=== PATIENT | male | born 1950 | race Caucasian/White ===

== ENCOUNTER 2022-04-28 10:43 | Emergency (ER) | payer MEDICARE, MEDICAID ==
[2022-04-28] VITALS (24 sets, daily range): BP systolic 137–211; BP diastolic 77–132
[~2022-04-28] VITALS: Ht 177.8 cm; Wt 84.5 kg
[~2022-04-28 10:43] MED LIST: ADLT ASA LOW81 MG PO; ALTOPREV20 MG PO; BP MED; LIPITOR20 MG PO; LOPRESSOR25 MG PO; METFORMIN500 MG PO; NOVOLIN 70/30 SC; PREDNISONE10 MG PO; ULTRAM50 MG OR; ZESTRIL/PRIN5 MG/TA1 PO; ZITHROMAX250 MG PO
[2022-04-28] MEDS ORDERED: BACTRIM DS1 TAB PO (14:14)
== END 2022-04-28 15:36 | disposition home or self-care (01) ==
LOC: ED 10:43
PROC: 0HQMXZZ Repair Right Foot Skin, External Approach (ICD-10-PCS; principal; 2022-04-28)
DX: S92.421B Displaced fracture of distal phalanx of right great toe, initial encounter for open fracture (principal); E11.40 Type 2 diabetes mellitus with diabetic neuropathy, unspecified; I10 Essential (primary) hypertension; F17.220 Nicotine dependence, chewing tobacco, uncomplicated; W22.09XA Striking against other stationary object, initial encounter; Y92.009 Unspecified place in unspecified non-institutional (private) residence as the place of occurrence of the external cause

== ENCOUNTER 2022-05-13 13:35 | Inpatient (IN) | payer MEDICARE, MEDICAID ==
[~2022-05-13] VITALS: Ht 177.8 cm; Wt 89.0 kg
[2022-05-13] VITALS (14 sets, daily range): BP systolic 62–142; BP diastolic 38–121
[~2022-05-13 13:35] MED LIST changes: +BACTRIM DS1 TAB PO
--- NOTE | 2022-05-13 13:35 | NUR ---
PT TO ROOM VIA EMS
--- NOTE | 2022-05-13 14:00 | NUR ---
GRANDDAUGHTER GIVEN FAX NUMBER AND ASKED TO CALL PCP FOR MED REC
[2022-05-13 14:13] LABS: HEMOGLOBIN 12.4 g/dl (14.0-18.0); IMMATURE GRANULOCYTES 0.4 % (0.0-5.0); MEAN CELL VOLUME 85.1 fL CALC (80.0-100.0); MEAN CORPUSCULAR HGB 29.3 pG CALC (26.0-32.0); MEAN CORPUSCULAR HGB CONC 34.4 g/dL CAL (32.0-36.0); NEUT# 5.24 thou/uL (1.82-7.42); RED BLOOD COUNT 4.23 mill/uL (4.70-6.10); RED CELL DISTRI WIDTH 13.1 % (11.5-15.5)
[2022-05-13 14:18] LABS: ALBUMIN 3.8 g/dL (3.2-5.0); ALKALINE PHOSPHATASE 74 u/l (38-126); BILIRUBIN, TOTAL 0.5 mg/dL (0.0-1.4); BUN 43 mg/dL (8-23); BUN/CREATININE RATIO 20 (12-20 (CALC)); CHLORIDE 96 mmol/l (95-108); CREATININE 2.1 mg/dL (0.7-1.3); GFR FOR AFR.AMER. 38 ML/MIN (>=60 (CALC)); GFR OTHER RACES 31 ML/MIN (>=60 (CALC)); SODIUM 125 mmol/l (137-146); TOTAL PROTEIN 7.6 g/dL (6.3-8.2)
[2022-05-13 14:19] LABS: ANION GAP 19 (6-22 (CALC)); CARBON DIOXIDE 16 mmol/l (22-30); POTASSIUM 5.7 mmol/l (3.5-5.1); SGOT/AST 32 u/l (19-48)
--- NOTE | 2022-05-13 14:25 | NUR ---
PATIENT NOTED TO HAVE MILD REDNESS AND SWELLING TO RIGHT GREAT TOE. REPORTS HAVING LACERATION REPAIR A FEW WEEKS PRIOR. PATIENT DENIES ANY PAIN AT THIS TIME.
--- NOTE | 2022-05-13 15:15 | NUR ---
PATIENT RESTING ON STRETCHER, DENIES ANY COMPLAINTS. WATCHING TV AT THIS TIME
--- NOTE | 2022-05-13 16:40 | NUR ---
PATIENT ASSISTED WITH URINAL 700 ML OF EMBER COLORED URINE OUT
[2022-05-13 17:22] LABS: URINE BILIRUBIN - DIPSTICK NEGATIVE (NEGATIVE); URINE BLOOD DIPSTICK NEGATIVE (NEGATIVE); URINE COLOR YELLOW; URINE GLUCOSE - DIPSTICK NEGATIVE (NEGATIVE); URINE KETONE NEGATIVE (NEGATIVE); URINE LEUK ESTERASE NEGATIVE (NEGATIVE); URINE PROTEIN - DIPSTICK NEGATIVE (NEG-TRACE); URINE SPECIFIC GRAVITY >=1.030; URINE UROBILINOGEN - DIPSTICK 0.2 E.U./dL (0.2)
[2022-05-13 17:27] LABS: URINE NITRITE - DIPSTICK NEGATIVE (Negative)
--- NOTE | 2022-05-13 17:40 | NUR ---
ASSISTED WITH URINAL
--- NOTE | 2022-05-13 17:44 | NUR ---
PATIENT UNABLE TO PROVIDE NAME OF HOME MEDS. PATIENT IS POOR HISTORIAN. NO MED LIST RECEIVED FROM PCP OFFICE.
--- NOTE | 2022-05-13 18:15 | NUR ---
WAITING ON ROOM ASSIGNMENT TO TRANSPORT TO MED SURG
--- NOTE | 2022-05-13 18:55 | NUR ---
REPORT GIVEN TO SHARIF NEGRON. CARE RELINQUISHED.
[2022-05-13 19:03] LABS: CREATININE 1.8 mg/dL (0.7-1.3); POTASSIUM 5.1 mmol/l (3.5-5.1)
--- NOTE | 2022-05-13 20:00 | NUR ---
Reassessment of patient completed. No distress noted. RESTING WITH EYES CLOSED.
--- NOTE | 2022-05-13 21:00 | NUR ---
Reassessment of patient completed. No distress noted. PT RESTING AWAITING TRANSFER TO FLOOR
--- NOTE | 2022-05-13 23:00 | NUR ---
Reassessment of patient completed. No distress noted.
--- NOTE | 2022-05-13 23:30 | NUR ---
PT TRANSFERRED TO MED SURG.
[2022-05-14] VITALS (8 sets, daily range): BP systolic 102–162; BP diastolic 49–89
[2022-05-14 05:09] LABS: HEMATOCRIT 34.6 % (39.0-50.0); IMMATURE GRANULOCYTES 0.2 % (0.0-5.0); MEAN CELL VOLUME 84.6 fL CALC (80.0-100.0); MEAN CORPUSCULAR HGB 29.3 pG CALC (26.0-32.0); MEAN CORPUSCULAR HGB CONC 34.7 g/dL CAL (32.0-36.0); NEUT# 3.41 thou/uL (1.82-7.42); RED BLOOD COUNT 4.09 mill/uL (4.70-6.10); RED CELL DISTRI WIDTH 13.2 % (11.5-15.5)
[2022-05-14 05:44] LABS: ALBUMIN 3.4 g/dL (3.2-5.0); BILIRUBIN, TOTAL 0.3 mg/dL (0.0-1.4); CREATININE 1.7 mg/dL (0.7-1.3); MAGNESIUM 2.2 mg/dL (1.6-2.3); POTASSIUM 4.9 mmol/l (3.5-5.1)
--- NOTE | 2022-05-14 07:00 | NUR ---
RECEIVE REPORT SHI OLGUIN.
--- NOTE | 2022-05-14 08:00 | NUR ---
PATIENT ALERT AND ORIENTED X2. STABLE AT THIS TIME. ASSESSMENT HEAD-TO TOE IS COMPLETE. PATIENT IS EDUCATED ABOUD MEDICATIONS AND NURSING PLAN FOR TODAY. SAFETY AND FALL PRECAUTIONS IN PLACE. CALL LIGHT WITHIN IN REACH.
--- NOTE | 2022-05-14 12:00 | NUR ---
PATIENT RESTING PLEASANT IN THE BED. STABLE AT THIS TIME.
[2022-05-14] MEDS ORDERED: DICLOFEN POT50 MG PO (12:38)
[2022-05-14] MEDS ORDERED: LEVEMIR FL100 UNIT/M SC ×2 (12:40→13:13)
[2022-05-14] MEDS ORDERED: HYZAAR1 TA1 PO (12:41)
[2022-05-14] MEDS ORDERED: SULFAMETHOXAZOL1 TA3 (12:44)
--- NOTE | 2022-05-14 13:47 | NUR ---
S: SARAH BARBOSA is a 71 M who presents with infection in toe. He has a history of diabetes and HTN. All medications in patient's chart were reviewed. O: VS: BP 102/49 mmHg, P 81 bpm, RR 18 bpm,T 98.2 F W 88.9kg, HT 177.8cm , Scr= 1.7 mg/dL,CrCl= 49.4 ml/min A: Blood culture is pending. P: Patient is on zosyn 3.375mg IV Q6H. Pt received Vancomycin 1.75 g IV loading dose 05/13/22@1999. Vancomycin ordered for pharmacy to dose. Start Vancomycin 1250mg IV Q24H. Vancomycin trough is drawn before the 4th dose on 05/16/22 @ 1930. Vancomycin goal trough is between 15-20 mcg/ml. Pharmacy will follow and or advise on antibiotics use as needed.
--- NOTE | 2022-05-14 16:00 | NUR ---
PATIENT RESTING STABLE AT THIS TIME. ANY PAIN OR DISCOMFORT. SAFETY AND FALL PRECAUTIONS IN PLACE. CALL LIGHT WITHIN IN REACH.
--- NOTE | 2022-05-14 19:58 | NUR ---
Patient resting in bed. No complaints at this time. nicholea light within reach.
[2022-05-15] VITALS (8 sets, daily range): BP systolic 132–179; BP diastolic 73–93
--- NOTE | 2022-05-15 02:21 | NUR ---
Patient in bed sleeping. No complaints from the patient.
--- NOTE | 2022-05-15 04:06 | NUR ---
Patient resting in bed comfortably. No complaints. No signs of distress.
[2022-05-15 05:44] LABS: HEMATOCRIT 38.2 % (39.0-50.0); HEMOGLOBIN 12.9 g/dl (14.0-18.0); MEAN CORPUSCULAR HGB 29.4 pG CALC (26.0-32.0); MEAN CORPUSCULAR HGB CONC 33.8 g/dL CAL (32.0-36.0); RED BLOOD COUNT 4.39 mill/uL (4.70-6.10); RED CELL DISTRI WIDTH 13.5 % (11.5-15.5)
[2022-05-15 06:17] LABS: BUN 23 mg/dL (8-23); BUN/CREATININE RATIO 21 (12-20 (CALC)); CARBON DIOXIDE 20 mmol/l (22-30); CHLORIDE 111 mmol/l (95-108); CREATININE 1.1 mg/dL (0.7-1.3); GFR FOR AFR.AMER. > 60 ML/MIN (>=60 (CALC)); GFR OTHER RACES > 60 ML/MIN (>=60 (CALC)); MAGNESIUM 2.2 mg/dL (1.6-2.3)
[2022-05-15 06:28] LABS: ANION GAP 13 (6-22 (CALC)); POTASSIUM 5.2 mmol/l (3.5-5.1); SODIUM 139 mmol/l (137-146)
--- NOTE | 2022-05-15 07:00 | NUR ---
RECEIVE REPORT FROM BOSTON OLGUIN.
--- NOTE | 2022-05-15 09:37 | NUR ---
PATIENT ALERTA AND ORIENTED X3. RESTING IN BED STABLE AT THIS TIME. ASSESSMENT HEAD-TO-TOE COMPLETE. MORNING MEDICATIONS DONE. REPORT GIVEN TO MARILEE OLGUIN. FOR CONTINUE CARE.
--- NOTE | 2022-05-15 13:43 | NUR ---
PT RESTING IN BED WATCHING TV. NO APPARENT DISTRESS NOTED. IVF @ [facility]. PT DENIES ANY CURRENT WANTS OR NEEDS. CALL LIGHT WITHIN REACH. WILL CONTINUE TO MONITOR.
--- NOTE | 2022-05-15 16:02 | NUR ---
REPOSITIONED PT IN X2 PERSON ASSIST. COCCYX OFF LOADED WITH PILLOWS. PT TOLERATED WELL. NO APPARENT DISTRESS NOTED. CALL LIGHT WITHIN REACH. WILL CONTINUE TO MONITOR.
--- NOTE | 2022-05-15 19:46 | NUR ---
Patient lying in bed A+OX3. Patient talkative with no signs of pain and distress.
[2022-05-16] VITALS (8 sets, daily range): BP systolic 142–164; BP diastolic 75–96
--- NOTE | 2022-05-16 02:23 | NUR ---
Patient in bed sleeping comfortably. No signs of pain or distress. No complaints.
[2022-05-16 05:52] LABS: BUN 18 mg/dL (8-23); BUN/CREATININE RATIO 21 (12-20 (CALC)); CARBON DIOXIDE 21 mmol/l (22-30); CHLORIDE 111 mmol/l (95-108); CREATININE 0.8 mg/dL (0.7-1.3); GFR FOR AFR.AMER. > 60 ML/MIN (>=60 (CALC)); GFR OTHER RACES > 60 ML/MIN (>=60 (CALC)); SODIUM 139 mmol/l (137-146)
[2022-05-16 06:00] LABS: ANION GAP 13 (6-22 (CALC)); POTASSIUM 5.5 mmol/l (3.5-5.1)
--- NOTE | 2022-05-16 08:00 | NUR ---
PT EATING BREAKFAST, DENIES ANY COMPLAINTS, SITTING UP IN BED, PT NOT IN ANY DISTRESS, WILL CONTINUE TO MONITOR.
--- NOTE | 2022-05-16 12:00 | NUR ---
PT WATCHING TV IN BED, PT DENIES ANY COMPLAINTS, WILL CONTINUE TO MONITOR
--- NOTE | 2022-05-16 16:27 | NUR ---
PT HAS NO COMPLAINTS, PT IN NO DISTRESS, WILL CONTINUE TO MONITOR
[2022-05-17] VITALS (10 sets, daily range): BP systolic 132–166; BP diastolic 82–99
--- NOTE | 2022-05-17 01:31 | NUR ---
PT ALERT, ORIENTED, ABLE TO MAKE NEEDS KNOWN. HR-RRR, PT DENIES PAIN, CHEST PAIN, PRESSURE. TELEMETRY IN PLACE. LUNG SOUNDS CLEAR. PT DENIES SOB, DIFFICULTY BREATHING. ABD SOFT, NONTENDER, BT PRESENT. PT DENIES NAUSEA. PT VOIDING ADEQUATE AMOUNT OF URINE. PT HAS BLACKENED RIGHT GREAT TOE, DR AWARE PER DAY SHIFT. PT SLEEPING IN NO SIGN OF DISCOMFORT. WILL CONTINUE TO MONITOR.
--- NOTE | 2022-05-17 04:23 | NUR ---
Pt sleeping in no sign of discomfort, call light within reach. Will continue to monitor.
[2022-05-17 05:43] LABS: HEMATOCRIT 39.2 % (39.0-50.0); HEMOGLOBIN 13.2 g/dl (14.0-18.0); IMMATURE GRANULOCYTES 0.4 % (0.0-5.0); MEAN CELL VOLUME 87.3 fL CALC (80.0-100.0); MEAN CORPUSCULAR HGB 29.4 pG CALC (26.0-32.0); MEAN CORPUSCULAR HGB CONC 33.7 g/dL CAL (32.0-36.0); NEUT# 2.87 thou/uL (1.82-7.42); RED BLOOD COUNT 4.49 mill/uL (4.70-6.10); RED CELL DISTRI WIDTH 13.4 % (11.5-15.5)
[2022-05-17 06:08] LABS: ANION GAP 14 (6-22 (CALC)); BUN 18 mg/dL (8-23); BUN/CREATININE RATIO 22 (12-20 (CALC)); CARBON DIOXIDE 22 mmol/l (22-30); CHLORIDE 108 mmol/l (95-108); CREATININE 0.8 mg/dL (0.7-1.3); GFR FOR AFR.AMER. > 60 ML/MIN (>=60 (CALC)); GFR OTHER RACES > 60 ML/MIN (>=60 (CALC)); MAGNESIUM 1.7 mg/dL (1.6-2.3); POTASSIUM 4.9 mmol/l (3.5-5.1); SODIUM 139 mmol/l (137-146)
--- NOTE | 2022-05-17 08:02 | NUR ---
BEDSIDE REPORT GIVEN, PT SLEEPING, BREATHING EVEN AND NON-LABORED, TELE MONITOR IN PLACE, CALL JAY IN REACH AND BED LOCKED IN LOWEST POSITION.
--- NOTE | 2022-05-17 12:00 | NUR ---
SITTING UP IN RECLINER HAVING MEAL, CONDITION STABLE, CALL JAY IN REACH.
--- NOTE | 2022-05-17 16:00 | NUR ---
RESTING IN BED, STABLE CONDITION
--- NOTE | 2022-05-17 23:45 | NUR ---
PT RESTING IN BED WACTING TV, DENIES PAIN OR DISCOMFORT AT THIS TIME. NO S/S OF DISTRESS NOTED. ASSESMENT COMPLETED AT THIS TIME. PT HAS A 20G IN TO [facility]. PT HAS SUTURES TO RIGHT BIG TOE, PT CAN'T RECALL WHAT HAPPEN TO IT. CALL LIGHT IN REACH AND BED IN LOWEST POSITION.
[2022-05-18] VITALS (7 sets, daily range): BP systolic 149–174; BP diastolic 82–105
--- NOTE | 2022-05-18 00:40 | NUR ---
PT IN BED RESTING WITH EYES CLOSED BREATHING EVEN AND [id number]. NO S/S OF DISTRESS NOTED. CALL LIGHT IN REACH AND BED IN LOWEST POSITION.
[2022-05-18 05:13] LABS: HEMATOCRIT 37.8 % (39.0-50.0); IMMATURE GRANULOCYTES 0.3 % (0.0-5.0); MEAN CELL VOLUME 86.9 fL CALC (80.0-100.0); MEAN CORPUSCULAR HGB 29.9 pG CALC (26.0-32.0); MEAN CORPUSCULAR HGB CONC 34.4 g/dL CAL (32.0-36.0); NEUT# 3.74 thou/uL (1.82-7.42); RED BLOOD COUNT 4.35 mill/uL (4.70-6.10); RED CELL DISTRI WIDTH 13.2 % (11.5-15.5)
[2022-05-18 05:37] LABS: ANION GAP 14 (6-22 (CALC)); BUN 19 mg/dL (8-23); BUN/CREATININE RATIO 27 (12-20 (CALC)); CARBON DIOXIDE 22 mmol/l (22-30); CHLORIDE 108 mmol/l (95-108); CREATININE 0.7 mg/dL (0.7-1.3); GFR FOR AFR.AMER. > 60 ML/MIN (>=60 (CALC)); GFR OTHER RACES > 60 ML/MIN (>=60 (CALC)); MAGNESIUM 1.6 mg/dL (1.6-2.3); POTASSIUM 4.5 mmol/l (3.5-5.1); SODIUM 140 mmol/l (137-146)
--- NOTE | 2022-05-18 07:25 | NUR ---
RESTING IN BED. CHEST RISING AND FALLING NO S/S OF DISTRESS NOTED.
--- NOTE | 2022-05-18 12:20 | NUR ---
RECEIVE REPORT FROM KINZA OLGUIN. PATIENT STABLE RESTING IN BED. CONTINUE PLAN OF CARE.
[2022-05-18] MEDS ORDERED: DOXYCYCLINE100 MG PO (15:36)
[2022-05-18] MEDS ORDERED: LEVEMIR100 UNIT SC (15:36)
[2022-05-18] MEDS ORDERED: NORVASC2.5 M1 PO (15:39)
[2022-05-18] MEDS ORDERED: PROTONIX40 MG PO (15:39)
--- NOTE | 2022-05-18 16:18 | NUR ---
PATIENT IS RESTING IN BED. STABLE AT THIS TIME. SAFETY AND FALL PRECAUTIONS IN PLACE. CALL LIGHT WITHIN IN REACH. HOURLY ROUNDS CONTINUE.
== END 2022-05-18 19:00 | DRG 683 ==
LOC: ED 13:35 → ED-I 17:34 → ED 17:47 → MS2 17:48
PROVIDERS: Emergency Medicine; Internal Medicine; ADMIT Internal Medicine; ATTEND Internal Medicine
DX: N17.9 Acute kidney failure, unspecified (principal); E87.1 Hypo-osmolality and hyponatremia; E87.5 Hyperkalemia; E86.0 Dehydration; T50.2X5A Adverse effect of carbonic-anhydrase inhibitors, benzothiadiazides and other diuretics, initial encounter; M62.81 Muscle weakness (generalized); R26.81 Unsteadiness on feet; I10 Essential (primary) hypertension; L03.031 Cellulitis of right toe; E11.9 Type 2 diabetes mellitus without complications; F17.200 Nicotine dependence, unspecified, uncomplicated; S92.421D Displaced fracture of distal phalanx of right great toe, subsequent encounter for fracture with routine healing; X58.XXXD Exposure to other specified factors, subsequent encounter; Z60.2 Problems related to living alone
CPT/HCPCS: J3370

== ENCOUNTER 2022-12-30 14:12 | Inpatient (IN) | payer MEDICARE, MEDICAID ==
[~2022-12-30] VITALS: Ht 177.8 cm; Wt 90.2 kg
[~2022-12-30 14:12] MED LIST changes: +DICLOFEN POT50 MG PO; +DOXYCYCLINE100 MG PO; +HYZAAR1 TA1 PO; +LEVEMIR FL100 UNIT/M SC; +LEVEMIR100 UNIT SC; +NORVASC2.5 M1 PO; +PROTONIX40 MG PO; +SULFAMETHOXAZOL1 TA3
[2022-12-30 14:25] VITALS: BP 114/69
[2022-12-30 14:59] LABS: BASO% 0.4 % (0-3); EOS% 7.1 % (0-8); HEMATOCRIT 40.7 % (39.0-50.0); HEMOGLOBIN 12.9 g/dl (14.0-18.0); IMMATURE GRANULOCYTES 0.1 % (0.0-5.0); LYMPH% 22.5 % (15-41); MEAN CELL VOLUME 86.6 fL CALC (80.0-100.0); MEAN CORPUSCULAR HGB 27.4 pG CALC (26.0-32.0); MEAN CORPUSCULAR HGB CONC 31.7 g/dL CAL (32.0-36.0); MONO% 6.8 % (2-13); NEUT# 4.47 thou/uL (1.82-7.42); NEUT% 63.1 % (42-76); RED BLOOD COUNT 4.7 mill/uL (4.70-6.10); RED CELL DISTRI WIDTH 14.1 % (11.5-15.5)
[2022-12-30 15:15] LABS: ANION GAP 15 (6-22 (CALC)); BUN 25 mg/dL (8-23); BUN/CREATININE RATIO 27 (12-20 (CALC)); CARBON DIOXIDE 23 mmol/l (22-30); CHLORIDE 105 mmol/l (95-108); CREATININE 0.9 mg/dL (0.7-1.3); GFR FOR AFR.AMER. > 60 ML/MIN (>=60 (CALC)); GFR OTHER RACES > 60 ML/MIN (>=60 (CALC)); POTASSIUM 4.5 mmol/l (3.5-5.1); SODIUM 138 mmol/l (137-146)
[2022-12-30] MEDS ORDERED: SERTRALINE50 MG PO (15:37)
[2022-12-30] MEDS ORDERED: HYDROCHLOROT12.5 M1 PO (15:37)
[2022-12-30] MEDS ORDERED: LOSARTAN POTASS50 MG PO (15:38)
[2022-12-30] MEDS ORDERED: METFORMIN HYDR500 MG PO (15:39)
[2022-12-30] MEDS ORDERED: OZEMPIC2 MG SC (15:42)
[2022-12-30] MEDS ORDERED: INSULIN DEGL SC (15:47)
[2022-12-30] MEDS ORDERED: PEPCID AC10 MG PO (15:56)
[2022-12-30] MEDS ORDERED: MIRALAX17 GM (15:57)
[2022-12-30] MEDS ORDERED: DAILY PROBIOTI250 MG (15:58)
[2022-12-30 19:11] VITALS: BP 119/70
[2022-12-30 22:32] LABS: URINE BILIRUBIN - DIPSTICK NEGATIVE (NEGATIVE); URINE BLOOD DIPSTICK NEGATIVE (NEGATIVE); URINE COLOR YELLOW; URINE GLUCOSE - DIPSTICK NEGATIVE (NEGATIVE); URINE KETONE TRACE mg/dL (NEGATIVE); URINE LEUK ESTERASE NEGATIVE (NEGATIVE); URINE PROTEIN - DIPSTICK NEGATIVE (NEG-TRACE); URINE SPECIFIC GRAVITY 1.015; URINE UROBILINOGEN - DIPSTICK 0.2 E.U./dL (0.2)
[2022-12-30 22:39] LABS: URINE NITRITE - DIPSTICK NEGATIVE (Negative)
[2022-12-31] VITALS (14 sets, daily range): BP systolic 100–166; BP diastolic 61–90
[2022-12-31 04:52] LABS: ALBUMIN 3.3 g/dL (3.2-5.0); ALKALINE PHOSPHATASE 86 u/l (38-126); ANION GAP 14 (6-22 (CALC)); BUN 23 mg/dL (8-23); BUN/CREATININE RATIO 30 (12-20 (CALC)); CARBON DIOXIDE 24 mmol/l (22-30); CHLORIDE 106 mmol/l (95-108); CREATININE 0.8 mg/dL (0.7-1.3); GFR FOR AFR.AMER. > 60 ML/MIN (>=60 (CALC)); GFR OTHER RACES > 60 ML/MIN (>=60 (CALC)); POTASSIUM 4.4 mmol/l (3.5-5.1); SGOT/AST 20 u/l (19-48); SODIUM 140 mmol/l (137-146); TOTAL PROTEIN 7.2 g/dL (6.3-8.2)
[2022-12-31 05:02] LABS: BILIRUBIN, TOTAL 0.1 mg/dL (0.2-1.3)
[2022-12-31 05:56] LABS: BASO% 0.3 % (0-3); HEMATOCRIT 37.2 % (39.0-50.0); HEMOGLOBIN 12.2 g/dl (14.0-18.0); IMMATURE GRANULOCYTES 0.1 % (0.0-5.0); LYMPH% 22.7 % (15-41); MEAN CELL VOLUME 85.3 fL CALC (80.0-100.0); MEAN CORPUSCULAR HGB CONC 32.8 g/dL CAL (32.0-36.0); MONO% 7.6 % (2-13); NEUT# 4.98 thou/uL (1.82-7.42); NEUT% 63.3 % (42-76); RED BLOOD COUNT 4.36 mill/uL (4.70-6.10); RED CELL DISTRI WIDTH 14.1 % (11.5-15.5)
[2023-01-01] VITALS (9 sets, daily range): BP systolic 130–151; BP diastolic 75–81
[2023-01-01 04:43] LABS: BASO% 0.2 % (0-3); EOS% 4.7 % (0-8); HEMATOCRIT 36.8 % (39.0-50.0); HEMOGLOBIN 12.1 g/dl (14.0-18.0); IMMATURE GRANULOCYTES 0.1 % (0.0-5.0); LYMPH% 17.9 % (15-41); MEAN CELL VOLUME 85.4 fL CALC (80.0-100.0); MEAN CORPUSCULAR HGB 28.1 pG CALC (26.0-32.0); MEAN CORPUSCULAR HGB CONC 32.9 g/dL CAL (32.0-36.0); MONO% 9.6 % (2-13); NEUT# 5.68 thou/uL (1.82-7.42); NEUT% 67.5 % (42-76); RED BLOOD COUNT 4.31 mill/uL (4.70-6.10); RED CELL DISTRI WIDTH 14.2 % (11.5-15.5)
[2023-01-01 04:58] LABS: ALBUMIN 3.3 g/dL (3.2-5.0); ALKALINE PHOSPHATASE 76 u/l (38-126); ANION GAP 13 (6-22 (CALC)); BUN 13 mg/dL (8-23); BUN/CREATININE RATIO 19 (12-20 (CALC)); CARBON DIOXIDE 23 mmol/l (22-30); CHLORIDE 107 mmol/l (95-108); CREATININE 0.7 mg/dL (0.7-1.3); GFR FOR AFR.AMER. > 60 ML/MIN (>=60 (CALC)); GFR OTHER RACES > 60 ML/MIN (>=60 (CALC)); POTASSIUM 4.3 mmol/l (3.5-5.1); SGOT/AST 20 u/l (19-48); SODIUM 139 mmol/l (137-146); TOTAL PROTEIN 7.4 g/dL (6.3-8.2)
[2023-01-01 05:00] LABS: BILIRUBIN, TOTAL 0.3 mg/dL (0.2-1.3)
[2023-01-02] VITALS (10 sets, daily range): BP systolic 118–134; BP diastolic 65–74
[2023-01-02 05:02] LABS: BASO% 0.3 % (0-3); HEMATOCRIT 37.7 % (39.0-50.0); HEMOGLOBIN 12.4 g/dl (14.0-18.0); IMMATURE GRANULOCYTES 0.4 % (0.0-5.0); LYMPH% 19.8 % (15-41); MEAN CELL VOLUME 84.2 fL CALC (80.0-100.0); MEAN CORPUSCULAR HGB 27.7 pG CALC (26.0-32.0); MEAN CORPUSCULAR HGB CONC 32.9 g/dL CAL (32.0-36.0); MONO% 10.4 % (2-13); NEUT# 4.98 thou/uL (1.82-7.42); NEUT% 62.1 % (42-76); RED BLOOD COUNT 4.48 mill/uL (4.70-6.10); RED CELL DISTRI WIDTH 14.1 % (11.5-15.5)
[2023-01-02 06:40] LABS: ALBUMIN 3.5 g/dL (3.2-5.0); ALKALINE PHOSPHATASE 81 u/l (38-126); ANION GAP 13 (6-22 (CALC)); BILIRUBIN, TOTAL 0.3 mg/dL (0.2-1.3); BUN 11 mg/dL (8-23); BUN/CREATININE RATIO 19 (12-20 (CALC)); CARBON DIOXIDE 25 mmol/l (22-30); CHLORIDE 104 mmol/l (95-108); CREATININE 0.6 mg/dL (0.7-1.3); GFR FOR AFR.AMER. > 60 ML/MIN (>=60 (CALC)); GFR OTHER RACES > 60 ML/MIN (>=60 (CALC)); SGOT/AST 19 u/l (19-48); SODIUM 137 mmol/l (137-146); TOTAL PROTEIN 7.8 g/dL (6.3-8.2)
[2023-01-03] VITALS (7 sets, daily range): BP systolic 111–143; BP diastolic 68–82
[2023-01-03 05:10] LABS: BASO% 0.3 % (0-3); EOS% 8.9 % (0-8); HEMATOCRIT 36.3 % (39.0-50.0); HEMOGLOBIN 11.8 g/dl (14.0-18.0); IMMATURE GRANULOCYTES 0.1 % (0.0-5.0); LYMPH% 17.1 % (15-41); MEAN CELL VOLUME 85.2 fL CALC (80.0-100.0); MEAN CORPUSCULAR HGB 27.7 pG CALC (26.0-32.0); MEAN CORPUSCULAR HGB CONC 32.5 g/dL CAL (32.0-36.0); MONO% 8.3 % (2-13); NEUT# 4.98 thou/uL (1.82-7.42); NEUT% 65.3 % (42-76); RED BLOOD COUNT 4.26 mill/uL (4.70-6.10); RED CELL DISTRI WIDTH 14.2 % (11.5-15.5)
[2023-01-03 05:24] LABS: ANION GAP 12 (6-22 (CALC)); BUN 15 mg/dL (8-23); BUN/CREATININE RATIO 22 (12-20 (CALC)); CARBON DIOXIDE 27 mmol/l (22-30); CHLORIDE 104 mmol/l (95-108); CREATININE 0.7 mg/dL (0.7-1.3); GFR FOR AFR.AMER. > 60 ML/MIN (>=60 (CALC)); GFR OTHER RACES > 60 ML/MIN (>=60 (CALC)); MAGNESIUM 1.8 mg/dL (1.6-2.3); POTASSIUM 3.9 mmol/l (3.5-5.1); SODIUM 140 mmol/l (137-146)
[2023-01-04] VITALS (8 sets, daily range): BP systolic 123–159; BP diastolic 60–83
[2023-01-04 05:17] LABS: BASO% 0.4 % (0-3); EOS% 13.5 % (0-8); HEMATOCRIT 36.5 % (39.0-50.0); HEMOGLOBIN 11.8 g/dl (14.0-18.0); IMMATURE GRANULOCYTES 0.2 % (0.0-5.0); LYMPH% 23.8 % (15-41); MEAN CELL VOLUME 85.3 fL CALC (80.0-100.0); MEAN CORPUSCULAR HGB 27.6 pG CALC (26.0-32.0); MEAN CORPUSCULAR HGB CONC 32.3 g/dL CAL (32.0-36.0); MONO% 11.6 % (2-13); NEUT# 2.89 thou/uL (1.82-7.42); NEUT% 50.5 % (42-76); RED BLOOD COUNT 4.28 mill/uL (4.70-6.10); RED CELL DISTRI WIDTH 14.3 % (11.5-15.5)
[2023-01-04 05:25] LABS: ANION GAP 12 (6-22 (CALC)); BUN 14 mg/dL (8-23); BUN/CREATININE RATIO 22 (12-20 (CALC)); CARBON DIOXIDE 27 mmol/l (22-30); CHLORIDE 105 mmol/l (95-108); CREATININE 0.6 mg/dL (0.7-1.3); GFR FOR AFR.AMER. > 60 ML/MIN (>=60 (CALC)); GFR OTHER RACES > 60 ML/MIN (>=60 (CALC)); MAGNESIUM 1.7 mg/dL (1.6-2.3); POTASSIUM 4.3 mmol/l (3.5-5.1); SODIUM 139 mmol/l (137-146)
[2023-01-05 04:24] VITALS: BP 143/77
[2023-01-05 06:03] LABS: BASO% 0.3 % (0-3); EOS% 11.3 % (0-8); HEMOGLOBIN 11.7 g/dl (14.0-18.0); IMMATURE GRANULOCYTES 0.2 % (0.0-5.0); LYMPH% 27.5 % (15-41); MEAN CELL VOLUME 86.2 fL CALC (80.0-100.0); MEAN CORPUSCULAR HGB 27.3 pG CALC (26.0-32.0); MEAN CORPUSCULAR HGB CONC 31.6 g/dL CAL (32.0-36.0); MONO% 10.4 % (2-13); NEUT# 3.24 thou/uL (1.82-7.42); NEUT% 50.3 % (42-76); RED BLOOD COUNT 4.29 mill/uL (4.70-6.10); RED CELL DISTRI WIDTH 14.3 % (11.5-15.5)
[2023-01-05 06:19] LABS: ALBUMIN 3.2 g/dL (3.2-5.0); ALKALINE PHOSPHATASE 88 u/l (38-126); ANION GAP 13 (6-22 (CALC)); BUN 20 mg/dL (8-23); BUN/CREATININE RATIO 24 (12-20 (CALC)); CARBON DIOXIDE 26 mmol/l (22-30); CHLORIDE 105 mmol/l (95-108); CREATININE 0.9 mg/dL (0.7-1.3); GFR FOR AFR.AMER. > 60 ML/MIN (>=60 (CALC)); GFR OTHER RACES > 60 ML/MIN (>=60 (CALC)); POTASSIUM 4.3 mmol/l (3.5-5.1); SGOT/AST 18 u/l (19-48); SODIUM 139 mmol/l (137-146); TOTAL PROTEIN 7.2 g/dL (6.3-8.2)
[2023-01-05 06:21] LABS: BILIRUBIN, TOTAL 0.1 mg/dL (0.2-1.3)
[2023-01-05 07:00] VITALS: BP 155/86
[2023-01-05] MEDS ORDERED: VANCOMYCIN1250 MG/25 IV (09:48)
[2023-01-05] MEDS ORDERED: LEVOFLOXACIN500MG PO (09:48)
[2023-01-05 10:00] VITALS: BP 155/81
== END 2023-01-05 14:15 | DRG 617 ==
LOC: MS2 14:12
PROVIDERS: Internal Medicine; Nurse Practitioner Family; ADMIT Internal Medicine; ATTEND Internal Medicine
PROC: 0Y6P0Z0 Detachment at Right 1st Toe, Complete, Open Approach (ICD-10-PCS; principal; 2022-12-31)
PROC: 0Y6R0Z3 Detachment at Right 2nd Toe, Low, Open Approach (ICD-10-PCS; 2022-12-31)
PROC: 0QBN0ZZ Excision of Right Metatarsal, Open Approach (ICD-10-PCS; 2022-12-31)
PROC: 0HXMXZZ Transfer Right Foot Skin, External Approach (ICD-10-PCS; 2022-12-31)
PROC: 0JBQ0ZZ Excision of Right Foot Subcutaneous Tissue and Fascia, Open Approach (ICD-10-PCS; 2022-12-31)
PROC: 02HV33Z Insertion of Infusion Device into Superior Vena Cava, Percutaneous Approach (ICD-10-PCS; 2023-01-01)
PROC: B518ZZA Fluoroscopy of Superior Vena Cava, Guidance (ICD-10-PCS; 2023-01-01)
DX: E11.69 Type 2 diabetes mellitus with other specified complication (principal); L97.422 Non-pressure chronic ulcer of left heel and midfoot with fat layer exposed; M86.171 Other acute osteomyelitis, right ankle and foot; E11.621 Type 2 diabetes mellitus with foot ulcer; S91.101A Unspecified open wound of right great toe without damage to nail, initial encounter; S91.104A Unspecified open wound of right lesser toe(s) without damage to nail, initial encounter; L03.031 Cellulitis of right toe; E11.40 Type 2 diabetes mellitus with diabetic neuropathy, unspecified; I10 Essential (primary) hypertension; B95.2 Enterococcus as the cause of diseases classified elsewhere; B96.89 Other specified bacterial agents as the cause of diseases classified elsewhere; X58.XXXA Exposure to other specified factors, initial encounter; Z79.84 Long term (current) use of oral hypoglycemic drugs; Z79.4 Long term (current) use of insulin; Z79.85 Long-term (current) use of injectable non-insulin antidiabetic drugs; Z20.822 Contact with and (suspected) exposure to COVID-19
CPT/HCPCS: J0692; J1650; J2997; J3370

== ENCOUNTER 2023-03-08 08:16 | Inpatient (IN) | payer MEDICARE, OTHER ==
[~2023-03-08] VITALS: Ht 177.8 cm; Wt 98.3 kg
[2023-03-08] VITALS (132 sets, daily range): BP systolic 59–179; BP diastolic 35–149
[~2023-03-08 08:16] MED LIST changes: +DAILY PROBIOTI250 MG; +HYDROCHLOROT12.5 M1 PO; +INSULIN DEGL SC; +LEVOFLOXACIN500MG PO; +LOSARTAN POTASS50 MG PO; +METFORMIN HYDR500 MG PO; +MIRALAX17 GM; +OZEMPIC2 MG SC; +PEPCID AC10 MG PO; +SERTRALINE50 MG PO; +VANCOMYCIN1250 MG/25 IV
[2023-03-08 08:59] LABS: BASO% 0.1 % (0-3); EOS% 0.2 % (0-8); HEMATOCRIT 31.2 % (39.0-50.0); HEMOGLOBIN 10.4 g/dl (14.0-18.0); IMMATURE GRANULOCYTES 0.2 % (0.0-5.0); LYMPH% 6.5 % (15-41); MEAN CELL VOLUME 86.9 fL CALC (80.0-100.0); MEAN CORPUSCULAR HGB CONC 33.3 g/dL CAL (32.0-36.0); MONO% 7.2 % (2-13); NEUT# 14.11 thou/uL (1.82-7.42); NEUT% 85.8 % (42-76); RED BLOOD COUNT 3.59 mill/uL (4.70-6.10); RED CELL DISTRI WIDTH 15.6 % (11.5-15.5)
[2023-03-08 08:59] LABS: URINE BLOOD DIPSTICK Negative (NEGATIVE); URINE GLUCOSE - DIPSTICK Negative (NEGATIVE); URINE KETONE 15 mg/dL (NEGATIVE); URINE LEUK ESTERASE Negative (NEGATIVE); URINE NITRITE - DIPSTICK Negative (Negative); URINE PROTEIN - DIPSTICK Trace mg/dL (NEG-TRACE); URINE SPECIFIC GRAVITY 1.025
[2023-03-08 09:00] LABS: URINE COLOR Yellow
[2023-03-08 10:34] LABS: BILIRUBIN, TOTAL 0.6 mg/dL (0.2-1.3); CREATININE 2.5 mg/dL (0.7-1.3); POTASSIUM 5.6 mmol/l (3.5-5.1)
[2023-03-09] VITALS (30 sets, daily range): BP systolic 64–191; BP diastolic 43–139
[2023-03-09 06:07] LABS: ALBUMIN 2.8 g/dL (3.2-5.0); CREATININE 1.8 mg/dL (0.7-1.3); MAGNESIUM 1.5 mg/dL (1.6-2.3)
[2023-03-09 07:26] LABS: POTASSIUM 5.3 mmol/l (3.5-5.1)
[2023-03-09 09:57] LABS: BASO% 0.1 % (0-3); EOS% 0.9 % (0-8); HEMATOCRIT 31.1 % (39.0-50.0); HEMOGLOBIN 10.3 g/dl (14.0-18.0); IMMATURE GRANULOCYTES 0.2 % (0.0-5.0); LYMPH% 6.4 % (15-41); MEAN CELL VOLUME 87.1 fL CALC (80.0-100.0); MEAN CORPUSCULAR HGB 28.9 pG CALC (26.0-32.0); MEAN CORPUSCULAR HGB CONC 33.1 g/dL CAL (32.0-36.0); MONO% 6.8 % (2-13); NEUT# 11.01 thou/uL (1.82-7.42); NEUT% 85.6 % (42-76); RED BLOOD COUNT 3.57 mill/uL (4.70-6.10); RED CELL DISTRI WIDTH 15.2 % (11.5-15.5)
[2023-03-10] VITALS (24 sets, daily range): BP systolic 122–174; BP diastolic 65–141
[2023-03-10 06:25] LABS: ALBUMIN 2.3 g/dL (3.2-5.0); CREATININE 1.4 mg/dL (0.7-1.3)
[2023-03-10 06:30] LABS: POTASSIUM 4.1 mmol/l (3.5-5.1)
[2023-03-11] VITALS (23 sets, daily range): BP systolic 112–155; BP diastolic 61–99
[2023-03-11 05:30] LABS: BASO% 0.1 % (0-3); EOS% 5.8 % (0-8); HEMOGLOBIN 8.6 g/dl (14.0-18.0); IMMATURE GRANULOCYTES 0.1 % (0.0-5.0); LYMPH% 13.3 % (15-41); MEAN CELL VOLUME 89.7 fL CALC (80.0-100.0); MEAN CORPUSCULAR HGB 29.7 pG CALC (26.0-32.0); MEAN CORPUSCULAR HGB CONC 33.1 g/dL CAL (32.0-36.0); MONO% 9.2 % (2-13); NEUT# 6.39 thou/uL (1.82-7.42); NEUT% 71.5 % (42-76); RED BLOOD COUNT 2.9 mill/uL (4.70-6.10); RED CELL DISTRI WIDTH 14.8 % (11.5-15.5)
[2023-03-11 05:48] LABS: ALBUMIN 2.3 g/dL (3.2-5.0); BUN 27 mg/dL (8-23); CARBON DIOXIDE 33 mmol/l (22-30); CHLORIDE 102 mmol/l (95-108); CREATININE 1.2 mg/dL (0.7-1.3); GFR FOR AFR.AMER. > 60 ML/MIN (>=60 (CALC)); GFR OTHER RACES 59 ML/MIN (>=60 (CALC)); MAGNESIUM 1.7 mg/dL (1.6-2.3); POTASSIUM 3.7 mmol/l (3.5-5.1); SODIUM 138 mmol/l (137-146)
[2023-03-11 20:02] LABS: HEMATOCRIT 25.8 % (39.0-50.0); HEMOGLOBIN 8.3 g/dl (14.0-18.0); MEAN CELL VOLUME 90.5 fL CALC (80.0-100.0); MEAN CORPUSCULAR HGB 29.1 pG CALC (26.0-32.0); MEAN CORPUSCULAR HGB CONC 32.2 g/dL CAL (32.0-36.0); RED BLOOD COUNT 2.85 mill/uL (4.70-6.10); RED CELL DISTRI WIDTH 14.9 % (11.5-15.5)
[2023-03-12] VITALS (31 sets, daily range): BP systolic 117–150; BP diastolic 71–94
[2023-03-12 05:23] LABS: BASO% 0.3 % (0-3); EOS% 7.3 % (0-8); HEMATOCRIT 25.1 % (39.0-50.0); HEMOGLOBIN 8.1 g/dl (14.0-18.0); IMMATURE GRANULOCYTES 0.4 % (0.0-5.0); LYMPH% 10.5 % (15-41); MEAN CELL VOLUME 91.3 fL CALC (80.0-100.0); MEAN CORPUSCULAR HGB 29.5 pG CALC (26.0-32.0); MEAN CORPUSCULAR HGB CONC 32.3 g/dL CAL (32.0-36.0); MONO% 9.3 % (2-13); NEUT# 5.57 thou/uL (1.82-7.42); NEUT% 72.2 % (42-76); RED BLOOD COUNT 2.75 mill/uL (4.70-6.10)
[2023-03-12 05:38] LABS: ALBUMIN 2.3 g/dL (3.2-5.0); ALKALINE PHOSPHATASE 74 u/l (38-126); ANION GAP 7 (6-22 (CALC)); BILIRUBIN, TOTAL 0.5 mg/dL (0.2-1.3); BUN 22 mg/dL (8-23); BUN/CREATININE RATIO 18 (12-20 (CALC)); CARBON DIOXIDE 32 mmol/l (22-30); CHLORIDE 104 mmol/l (95-108); CREATININE 1.2 mg/dL (0.7-1.3); GFR FOR AFR.AMER. > 60 ML/MIN (>=60 (CALC)); GFR OTHER RACES 59 ML/MIN (>=60 (CALC)); MAGNESIUM 1.7 mg/dL (1.6-2.3); POTASSIUM 3.8 mmol/l (3.5-5.1); SGOT/AST 29 u/l (19-48); SODIUM 139 mmol/l (137-146); TOTAL PROTEIN 5.6 g/dL (6.3-8.2)
[2023-03-13] VITALS (11 sets, daily range): BP systolic 137–161; BP diastolic 82–90
[2023-03-13 05:34] LABS: BASO% 0.4 % (0-3); EOS% 10.9 % (0-8); HEMATOCRIT 28.1 % (39.0-50.0); HEMOGLOBIN 9.1 g/dl (14.0-18.0); IMMATURE GRANULOCYTES 0.7 % (0.0-5.0); MEAN CORPUSCULAR HGB 30.1 pG CALC (26.0-32.0); MEAN CORPUSCULAR HGB CONC 32.4 g/dL CAL (32.0-36.0); MONO% 9.6 % (2-13); NEUT# 4.46 thou/uL (1.82-7.42); NEUT% 63.4 % (42-76); RED BLOOD COUNT 3.02 mill/uL (4.70-6.10)
[2023-03-13 05:46] LABS: ALBUMIN 2.4 g/dL (3.2-5.0); ALKALINE PHOSPHATASE 70 u/l (38-126); ANION GAP 9 (6-22 (CALC)); BILIRUBIN, TOTAL 0.6 mg/dL (0.2-1.3); BUN 20 mg/dL (8-23); BUN/CREATININE RATIO 16 (12-20 (CALC)); CARBON DIOXIDE 30 mmol/l (22-30); CHLORIDE 105 mmol/l (95-108); CREATININE 1.3 mg/dL (0.7-1.3); GFR FOR AFR.AMER. > 60 ML/MIN (>=60 (CALC)); GFR OTHER RACES 54 ML/MIN (>=60 (CALC)); MAGNESIUM 1.8 mg/dL (1.6-2.3); POTASSIUM 3.9 mmol/l (3.5-5.1); SGOT/AST 25 u/l (19-48); SODIUM 140 mmol/l (137-146); TOTAL PROTEIN 5.9 g/dL (6.3-8.2)
[2023-03-14] VITALS (7 sets, daily range): BP systolic 155–180; BP diastolic 80–97
[2023-03-14 13:14] LABS: HEMATOCRIT 31.2 % (39.0-50.0); HEMOGLOBIN 9.8 g/dl (14.0-18.0); MEAN CELL VOLUME 92.9 fL CALC (80.0-100.0); MEAN CORPUSCULAR HGB 29.2 pG CALC (26.0-32.0); MEAN CORPUSCULAR HGB CONC 31.4 g/dL CAL (32.0-36.0); RED BLOOD COUNT 3.36 mill/uL (4.70-6.10); RED CELL DISTRI WIDTH 14.7 % (11.5-15.5)
[2023-03-14 13:21] LABS: ANION GAP 8 (6-22 (CALC)); BUN 21 mg/dL (8-23); BUN/CREATININE RATIO 18 (12-20 (CALC)); CARBON DIOXIDE 29 mmol/l (22-30); CHLORIDE 104 mmol/l (95-108); CREATININE 1.2 mg/dL (0.7-1.3); GFR FOR AFR.AMER. > 60 ML/MIN (>=60 (CALC)); GFR OTHER RACES 59 ML/MIN (>=60 (CALC)); SODIUM 137 mmol/l (137-146)
[2023-03-15] VITALS (7 sets, daily range): BP systolic 138–177; BP diastolic 63–112
[2023-03-15 06:13] LABS: HEMATOCRIT 31.4 % (39.0-50.0); MEAN CELL VOLUME 91.5 fL CALC (80.0-100.0); MEAN CORPUSCULAR HGB 29.2 pG CALC (26.0-32.0); MEAN CORPUSCULAR HGB CONC 31.8 g/dL CAL (32.0-36.0); RED BLOOD COUNT 3.43 mill/uL (4.70-6.10); RED CELL DISTRI WIDTH 14.8 % (11.5-15.5)
[2023-03-15 06:28] LABS: ALBUMIN 2.5 g/dL (3.2-5.0); ALKALINE PHOSPHATASE 68 u/l (38-126); ANION GAP 12 (6-22 (CALC)); BILIRUBIN, TOTAL 0.6 mg/dL (0.2-1.3); BUN 19 mg/dL (8-23); BUN/CREATININE RATIO 16 (12-20 (CALC)); CARBON DIOXIDE 24 mmol/l (22-30); CHLORIDE 105 mmol/l (95-108); CREATININE 1.1 mg/dL (0.7-1.3); GFR FOR AFR.AMER. > 60 ML/MIN (>=60 (CALC)); GFR OTHER RACES > 60 ML/MIN (>=60 (CALC)); MAGNESIUM 1.7 mg/dL (1.6-2.3); POTASSIUM 4.1 mmol/l (3.5-5.1); SGOT/AST 22 u/l (19-48); SODIUM 137 mmol/l (137-146); TOTAL PROTEIN 6.3 g/dL (6.3-8.2)
[2023-03-16 00:05] VITALS: BP 159/76
[2023-03-16 04:25] VITALS: BP 168/76
[2023-03-16 06:28] VITALS: BP 173/92
[2023-03-16] MEDS ORDERED: NORVASC2.5 M1 PO (08:07)
[2023-03-16] MEDS ORDERED: LOSARTAN POTASS50 MG PO (08:08)
[2023-03-16] MEDS ORDERED: ELIQUIS5 MG PO (08:13)
[2023-03-16 15:44] VITALS: BP 164/84
[2023-03-17 05:00] VITALS: BP 163/85
[2023-03-17 08:10] VITALS: BP 185/86
[2023-03-17 11:47] VITALS: BP 189/84
== END 2023-03-17 15:38 | DRG 853 ==
LOC: ED 08:16 → ED-I 08:44 → ED 11:26 → ICU 11:27 → MS2 03-13 17:59
PROVIDERS: Family Medicine; Internal Medicine Nephrology; Nurse Practitioner Family; ADMIT Student in an Organized Health Care Education/Training Program; ATTEND Student in an Organized Health Care Education/Training Program
PROC: 02HV33Z Insertion of Infusion Device into Superior Vena Cava, Percutaneous Approach (ICD-10-PCS; 2023-03-08)
PROC: 3E043XZ Introduction of Vasopressor into Central Vein, Percutaneous Approach (ICD-10-PCS; 2023-03-08)
PROC: 0HXNXZZ Transfer Left Foot Skin, External Approach (ICD-10-PCS; principal; 2023-03-11)
PROC: 0JBR0ZZ Excision of Left Foot Subcutaneous Tissue and Fascia, Open Approach (ICD-10-PCS; 2023-03-11)
PROC: 0QBM0ZZ Excision of Left Tarsal, Open Approach (ICD-10-PCS; 2023-03-11)
PROC: 0LBP0ZZ Excision of Left Lower Leg Tendon, Open Approach (ICD-10-PCS; 2023-03-11)
PROC: 30233N1 Transfusion of Nonautologous Red Blood Cells into Peripheral Vein, Percutaneous Approach (ICD-10-PCS; 2023-03-12)
DX: A41.9 Sepsis, unspecified organism (principal); N17.0 Acute kidney failure with tubular necrosis; R65.21 Severe sepsis with septic shock; U07.1 COVID-19; L03.116 Cellulitis of left lower limb; E87.20 Acidosis, unspecified; L97.428 Non-pressure chronic ulcer of left heel and midfoot with other specified severity; M86.8X6 Other osteomyelitis, lower leg; T82.868A Thrombosis due to vascular prosthetic devices, implants and grafts, initial encounter; I82.621 Acute embolism and thrombosis of deep veins of right upper extremity; E11.69 Type 2 diabetes mellitus with other specified complication; E11.621 Type 2 diabetes mellitus with foot ulcer; I12.9 Hypertensive chronic kidney disease with stage 1 through stage 4 chronic kidney disease, or unspecified chronic kidney disease; E11.22 Type 2 diabetes mellitus with diabetic chronic kidney disease; N18.2 Chronic kidney disease, stage 2 (mild); E83.42 Hypomagnesemia; E87.5 Hyperkalemia; E86.9 Volume depletion, unspecified; I95.9 Hypotension, unspecified; D64.9 Anemia, unspecified; B96.89 Other specified bacterial agents as the cause of diseases classified elsewhere; Y83.8 Other surgical procedures as the cause of abnormal reaction of the patient, or of later complication, without mention of misadventure at the time of the procedure; B96.20 Unspecified Escherichia coli [E. coli] as the cause of diseases classified elsewhere; Z89.431 Acquired absence of right foot; Z79.84 Long term (current) use of oral hypoglycemic drugs
CPT/HCPCS: J0692; J1650; J1756; J3370; J3475; P9016

== ENCOUNTER 2023-05-27 07:15 | Emergency (ER) | payer MEDICARE, OTHER ==
[2023-05-27] VITALS (18 sets, daily range): BP systolic 70–119; BP diastolic 36–64
[~2023-05-27] VITALS: Ht 177.8 cm; Wt 98.3 kg
[~2023-05-27 07:15] MED LIST changes: +ELIQUIS5 MG PO
[2023-05-27 07:44] LABS: BASO% 0.2 % (0-3); EOS% 0.2 % (0-8); HEMATOCRIT 31.2 % (39.0-50.0); HEMOGLOBIN 9.4 g/dl (14.0-18.0); IMMATURE GRANULOCYTES 0.3 % (0.0-5.0); LYMPH% 18.2 % (15-41); MEAN CORPUSCULAR HGB CONC 30.1 g/dL CAL (32.0-36.0); MONO% 14.9 % (2-13); NEUT# 4.21 thou/uL (1.82-7.42); NEUT% 66.2 % (42-76); RED BLOOD COUNT 3.13 mill/uL (4.70-6.10); RED CELL DISTRI WIDTH 14.9 % (11.5-15.5)
[2023-05-27 07:46] LABS: MEAN CELL VOLUME 99.7 fL CALC (80.0-100.0)
[2023-05-27 08:15] LABS: ALBUMIN 3.5 g/dL (3.2-5.0); BILIRUBIN, TOTAL 1.9 mg/dL (0.2-1.3); CREATININE 2.3 mg/dL (0.7-1.3); TOTAL PROTEIN 7.7 g/dL (6.3-8.2)
[2023-05-27 12:19] LABS: INTERNATIONAL NORMALIZED RATIO 2.5 RATIO (0.7-1.3); PROTHROMBIN TIME 22.8 SECONDS (9.0-12.5)
[2023-05-27 13:59] LABS: URINE BLOOD DIPSTICK Trace-intact (NEGATIVE); URINE GLUCOSE - DIPSTICK 100 mg/dL (NEGATIVE); URINE KETONE 15 mg/dL (NEGATIVE); URINE LEUK ESTERASE Negative (NEGATIVE); URINE NITRITE - DIPSTICK Negative (Negative); URINE PROTEIN - DIPSTICK >=300 mg/dL (NEG-TRACE); URINE SPECIFIC GRAVITY 1.025
[2023-05-27 14:06] LABS: URINE COLOR Dark yellow
[2023-05-27 14:09] LABS: URINE WBC 0-2 WBC/hpf (0-5)
[2023-05-27 14:12] LABS: URINE AMORPH SEDIMENT MANY hpf (NONE-FER); URINE BACTERIA MODERATE hpf
== END 2023-05-27 14:34 | disposition short-term general hospital (02) ==
LOC: ED 07:15
PROVIDERS: Family Medicine
PROC: 0T9B70Z Drainage of Bladder with Drainage Device, Via Natural or Artificial Opening (ICD-10-PCS; principal; 2023-05-27)
DX: I21.4 Non-ST elevation (NSTEMI) myocardial infarction (principal); J81.1 Chronic pulmonary edema; S36.62XA Contusion of rectum, initial encounter; I12.9 Hypertensive chronic kidney disease with stage 1 through stage 4 chronic kidney disease, or unspecified chronic kidney disease; E11.22 Type 2 diabetes mellitus with diabetic chronic kidney disease; N18.9 Chronic kidney disease, unspecified; X58.XXXA Exposure to other specified factors, initial encounter; Z79.84 Long term (current) use of oral hypoglycemic drugs; Z20.822 Contact with and (suspected) exposure to COVID-19

== ENCOUNTER 2024-02-25 10:23 | Inpatient (IN) | payer MEDICARE, OTHER ==
[2024-02-25] VITALS (26 sets, daily range): BP systolic 78–146; BP diastolic 37–103
[~2024-02-25] VITALS: Ht 177.8 cm; Wt 79.0 kg
[~2024-02-25 10:23] MED LIST changes: +AMLODIPINE BESYL5 MG PO; +COZAAR25 MG PO; +GABAPENTIN100 MG PO; +HUMALOG100 UNIT/M SC; +JARDIANCE25 MG PO; +KLOR-CON M2020 MEQ PO; +OZEMPIC 8 MG/3M1 INJ SC; +ROCEPHIN1 G1 IV; +ROPINIROLE HYDRO1 MG PO; +TAMSULOSIN0.4 MG PO; +VANCOMYCIN HYDRO1 GM IV; +ZOLOFT25 MG PO
[2024-02-25 11:25] LABS: BASO% 0.7 % (0-3); EOS% 1.2 % (0-8); HEMATOCRIT 36.8 % (39.0-50.0); HEMOGLOBIN 11.1 g/dl (14.0-18.0); IMMATURE GRANULOCYTES 0.7 % (0.0-5.0); LYMPH% 12.6 % (15-41); MEAN CELL VOLUME 100.8 fL CALC (80.0-100.0); MEAN CORPUSCULAR HGB 30.4 pG CALC (26.0-32.0); MEAN CORPUSCULAR HGB CONC 30.2 g/dL CAL (32.0-36.0); MONO% 7.4 % (2-13); NEUT# 4.6 thou/uL (1.82-7.42); NEUT% 77.4 % (42-76); RED BLOOD COUNT 3.65 mill/uL (4.70-6.10); RED CELL DISTRI WIDTH 14.4 % (11.5-15.5)
[2024-02-25 11:35] LABS: TOTAL PROTEIN 8.8 g/dL (6.3-8.2)
[2024-02-25 11:51] LABS: CREATININE 2.4 mg/dL (0.7-1.3)
[2024-02-25 11:52] LABS: ALBUMIN 3.9 g/dL (3.2-5.0); BILIRUBIN, TOTAL 0.9 mg/dL (0.2-1.3); POTASSIUM 5.8 mmol/l (3.5-5.1)
[2024-02-25 12:16] LABS: URINE BLOOD DIPSTICK Negative (NEGATIVE); URINE COLOR Yellow; URINE GLUCOSE - DIPSTICK 250 mg/dL (NEGATIVE); URINE KETONE Negative (NEGATIVE); URINE LEUK ESTERASE Negative (NEGATIVE); URINE NITRITE - DIPSTICK Negative (Negative); URINE PROTEIN - DIPSTICK Trace mg/dL (NEG-TRACE); URINE UROBILINOGEN - DIPSTICK 0.2 E.U./dL (0.2)
[2024-02-25] MEDS ORDERED: FUROSEMIDE 40 MG/4 ML SDV ONE (15:41)
[2024-02-25] MEDS ORDERED: CALCIUM GLUCONATE 1 GM/10 ML VIAL IV ONE (15:43)
[2024-02-25] MEDS ORDERED: INSULIN REGULAR (HUMAN) 100 UNIT/ML INJ IV ONE (17:40)
[2024-02-25] MEDS ORDERED: MAGNESIUM HYDROXIDE 30 ML UDC PO PRN (17:45)
[2024-02-25] MEDS ORDERED: ACETAMINOPHEN 325 MG/TAB PO PRN (17:45)
[2024-02-25] MEDS ORDERED: DEXTROSE 250 ML IV ONE (17:45)
[2024-02-25] MEDS ORDERED: SODIUM POLYSTYRENE SULFONATE 15 G/BTL POWDER ONE ×2 (19:15→19:16)
[2024-02-25] MEDS ORDERED: ALBUTEROL SULFATE 2.5 MG VIAL IN SCH (19:27)
[2024-02-25] MEDS ORDERED: INSULIN LISPRO 100 UNITS/ML ML SC SCH (19:28)
[2024-02-25] MEDS ORDERED: SODIUM POLYSTYRENE SULF PO SCH (19:29)
[2024-02-25 21:20] LABS: CREATININE 2.6 mg/dL (0.7-1.3)
[2024-02-25 21:28] LABS: POTASSIUM 5.4 mmol/l (3.5-5.1)
[2024-02-25] MEDS ORDERED: Heparin SODIUM (Porcine) 5,000 UNITS/ML SDV SC SCH (22:00)
[2024-02-26] VITALS (7 sets, daily range): BP systolic 120–134; BP diastolic 57–66
[2024-02-26 05:22] LABS: BASO% 0.5 % (0-3); EOS% 1.8 % (0-8); HEMATOCRIT 34.1 % (39.0-50.0); HEMOGLOBIN 10.3 g/dl (14.0-18.0); IMMATURE GRANULOCYTES 0.9 % (0.0-5.0); LYMPH% 18.7 % (15-41); MEAN CELL VOLUME 101.2 fL CALC (80.0-100.0); MEAN CORPUSCULAR HGB 30.6 pG CALC (26.0-32.0); MEAN CORPUSCULAR HGB CONC 30.2 g/dL CAL (32.0-36.0); MONO% 11.5 % (2-13); NEUT# 3.66 thou/uL (1.82-7.42); NEUT% 66.6 % (42-76); RED BLOOD COUNT 3.37 mill/uL (4.70-6.10); RED CELL DISTRI WIDTH 14.4 % (11.5-15.5)
[2024-02-26 05:48] LABS: ALBUMIN 3.5 g/dL (3.2-5.0); BILIRUBIN, TOTAL 0.7 mg/dL (0.2-1.3)
[2024-02-26 05:59] LABS: CHOLESTEROL HDL RATIO 2.9 (<4.4 (CALC)); MAGNESIUM 2.8 mg/dL (1.6-2.3); POTASSIUM 5.6 mmol/l (3.5-5.1)
[2024-02-26] MEDS ORDERED: SODIUM CHLORIDE 0.9% 1,000 ML IV PRN (07:15)
[2024-02-26] MEDS ORDERED: SODIUM BICARBONATE 150 ML in DEXTROSE 5% 850 ML IV SCH (11:30)
[2024-02-26 16:30] LABS: CREATININE 3.2 mg/dL (0.7-1.3)
[2024-02-26 16:39] LABS: POTASSIUM 5.7 mmol/l (3.5-5.1)
[2024-02-26] MEDS ORDERED: SODIUM ZIRCONIUM CYCLOSILICATE 10 GM PAK PO ONE (17:55)
[2024-02-26] MEDS ORDERED: SODIUM ZIRCONIUM CYCLOSILICATE 10 GM PAK PO SCH (21:00)
[2024-02-26] MEDS ORDERED: DEXTROSE 250 ML IV PRN (21:25)
[2024-02-27] VITALS (21 sets, daily range): BP systolic 97–132; BP diastolic 49–97
[2024-02-27 04:29] LABS: BASO% 0.2 % (0-3); EOS% 0.4 % (0-8); HEMATOCRIT 34.9 % (39.0-50.0); HEMOGLOBIN 10.4 g/dl (14.0-18.0); IMMATURE GRANULOCYTES 0.6 % (0.0-5.0); LYMPH% 13.3 % (15-41); MEAN CELL VOLUME 101.5 fL CALC (80.0-100.0); MEAN CORPUSCULAR HGB 30.2 pG CALC (26.0-32.0); MEAN CORPUSCULAR HGB CONC 29.8 g/dL CAL (32.0-36.0); MONO% 8.5 % (2-13); NEUT# 6.47 thou/uL (1.82-7.42); RED BLOOD COUNT 3.44 mill/uL (4.70-6.10); RED CELL DISTRI WIDTH 14.6 % (11.5-15.5)
[2024-02-27 04:42] LABS: ALBUMIN 3.5 g/dL (3.2-5.0); CREATININE 3.4 mg/dL (0.7-1.3); MAGNESIUM 2.7 mg/dL (1.6-2.3)
[2024-02-27 04:47] LABS: INTERNATIONAL NORMALIZED RATIO 1.6 RATIO (0.7-1.3); PROTHROMBIN TIME 15.1 SECONDS (9.0-12.5)
[2024-02-27] MEDS ORDERED: INSULIN LISPRO 100 UNITS/ML ML SC SCH (07:00)
[2024-02-27] MEDS ORDERED: Calcium Acetate (Phosphate Bin 667 MG/CAP PO SCH (11:30)
[2024-02-27] MEDS ORDERED: FUROSEMIDE 40 MG/4 ML SDV IV SCH (11:30)
[2024-02-27] MEDS ORDERED: ATROPINE SULFATE 0.1 MG/ML 10 ML SYR IV PRN (12:45)
[2024-02-27] MEDS ORDERED: IPRATROPIUM-Albuterol 0.5MG-2.5MG/3 ML NEB SCH (13:00)
[2024-02-27 16:34] LABS: CREATININE 3.6 mg/dL (0.7-1.3); POTASSIUM 4.9 mmol/l (3.5-5.1)
[2024-02-27 19:39] LABS: URINE BLOOD DIPSTICK Large (NEGATIVE); URINE COLOR Dark yellow; URINE GLUCOSE - DIPSTICK 100 mg/dL (NEGATIVE); URINE KETONE Negative (NEGATIVE); URINE LEUK ESTERASE Trace (NEGATIVE); URINE NITRITE - DIPSTICK Negative (Negative); URINE PH 5.5 (4.5-8.0); URINE PROTEIN - DIPSTICK 100 mg/dL (NEG-TRACE); URINE SPECIFIC GRAVITY >=1.030
[2024-02-27 19:40] LABS: URINE RBC 50-100 RBC/hpf (0-5); URINE YEAST FEW hpf
[2024-02-28] VITALS (23 sets, daily range): BP systolic 96–135; BP diastolic 51–100
[2024-02-28 04:55] LABS: BASO% 0.3 % (0-3); EOS% 0.4 % (0-8); HEMATOCRIT 33.5 % (39.0-50.0); HEMOGLOBIN 10.2 g/dl (14.0-18.0); IMMATURE GRANULOCYTES 0.4 % (0.0-5.0); LYMPH% 16.1 % (15-41); MEAN CORPUSCULAR HGB 30.4 pG CALC (26.0-32.0); MEAN CORPUSCULAR HGB CONC 30.4 g/dL CAL (32.0-36.0); MONO% 7.9 % (2-13); NEUT% 74.9 % (42-76); RED BLOOD COUNT 3.35 mill/uL (4.70-6.10); RED CELL DISTRI WIDTH 14.9 % (11.5-15.5)
[2024-02-28 05:22] LABS: ALBUMIN 3.1 g/dL (3.2-5.0); BILIRUBIN, TOTAL 0.9 mg/dL (0.2-1.3); CREATININE 3.5 mg/dL (0.7-1.3); MAGNESIUM 2.6 mg/dL (1.6-2.3); POTASSIUM 4.3 mmol/l (3.5-5.1); TOTAL PROTEIN 7.2 g/dL (6.3-8.2)
[2024-02-28] MEDS ORDERED: IODINE 0.9 % GEL TOP PRN (11:00)
[2024-02-28 16:36] LABS: CREATININE 3.5 mg/dL (0.7-1.3); POTASSIUM 4.4 mmol/l (3.5-5.1)
[2024-02-28] MEDS ORDERED: ALPRAZolam 0.25 MG PO PRN (18:35)
[2024-02-29] VITALS (25 sets, daily range): BP systolic 78–136; BP diastolic 46–74
[2024-02-29 05:51] LABS: BASO% 0.1 % (0-3); EOS% 0.1 % (0-8); HEMATOCRIT 33.6 % (39.0-50.0); HEMOGLOBIN 10.7 g/dl (14.0-18.0); IMMATURE GRANULOCYTES 0.3 % (0.0-5.0); MEAN CELL VOLUME 96.3 fL CALC (80.0-100.0); MEAN CORPUSCULAR HGB 30.7 pG CALC (26.0-32.0); MEAN CORPUSCULAR HGB CONC 31.8 g/dL CAL (32.0-36.0); MONO% 6.6 % (2-13); NEUT# 6.54 thou/uL (1.82-7.42); NEUT% 81.9 % (42-76); RED BLOOD COUNT 3.49 mill/uL (4.70-6.10); RED CELL DISTRI WIDTH 15.6 % (11.5-15.5)
[2024-02-29 06:24] LABS: ALBUMIN 2.7 g/dL (3.2-5.0); CREATININE 3.4 mg/dL (0.7-1.3); POTASSIUM 3.9 mmol/l (3.5-5.1); TOTAL PROTEIN 6.5 g/dL (6.3-8.2)
[2024-02-29 06:34] LABS: BILIRUBIN, TOTAL 1.3 mg/dL (0.2-1.3)
[2024-03-01] VITALS (24 sets, daily range): BP systolic 101–155; BP diastolic 56–100
[2024-03-01 04:48] LABS: HEMATOCRIT 32.9 % (39.0-50.0); HEMOGLOBIN 10.4 g/dl (14.0-18.0); MEAN CELL VOLUME 97.1 fL CALC (80.0-100.0); MEAN CORPUSCULAR HGB 30.7 pG CALC (26.0-32.0); MEAN CORPUSCULAR HGB CONC 31.6 g/dL CAL (32.0-36.0); RED BLOOD COUNT 3.39 mill/uL (4.70-6.10); RED CELL DISTRI WIDTH 15.5 % (11.5-15.5)
[2024-03-01 05:10] LABS: ALBUMIN 2.7 g/dL (3.2-5.0); BILIRUBIN, TOTAL 1.3 mg/dL (0.2-1.3); MAGNESIUM 2.7 mg/dL (1.6-2.3); POTASSIUM 3.7 mmol/l (3.5-5.1); TOTAL PROTEIN 6.4 g/dL (6.3-8.2)
[2024-03-01 05:14] LABS: CREATININE 3.1 mg/dL (0.7-1.3)
[2024-03-01 05:19] LABS: ALBUMIN 2.7 g/dL (3.2-5.0); CREATININE 3.1 mg/dL (0.7-1.3); POTASSIUM 3.7 mmol/l (3.5-5.1)
[2024-03-01] MEDS ORDERED: methylPREDNISolone Sod Succ 40 MG/ML SDV IV SCH (09:00)
[2024-03-01] MEDS ORDERED: FUROSEMIDE 40 MG/4 ML SDV IV SCH ×3 (13:00→21:00)
[2024-03-01] MEDS ORDERED: METOLAZONE 2.5 MG/TAB PO SCH (20:00)
[2024-03-02] VITALS (24 sets, daily range): BP systolic 117–184; BP diastolic 63–99
[2024-03-02 04:55] LABS: HEMATOCRIT 34.3 % (39.0-50.0); HEMOGLOBIN 10.7 g/dl (14.0-18.0); MEAN CELL VOLUME 97.4 fL CALC (80.0-100.0); MEAN CORPUSCULAR HGB 30.4 pG CALC (26.0-32.0); MEAN CORPUSCULAR HGB CONC 31.2 g/dL CAL (32.0-36.0); RED BLOOD COUNT 3.52 mill/uL (4.70-6.10); RED CELL DISTRI WIDTH 15.7 % (11.5-15.5)
[2024-03-02 05:11] LABS: ALBUMIN 2.9 g/dL (3.2-5.0); CREATININE 2.6 mg/dL (0.7-1.3); MAGNESIUM 2.9 mg/dL (1.6-2.3); POTASSIUM 4.1 mmol/l (3.5-5.1)
[2024-03-02] MEDS ORDERED: AZTREONAM 2 GM VIAL IV SCH (17:49)
[2024-03-02] MEDS ORDERED: AZTREONAM 2 GM in SODIUM CHLORIDE 0.9% 100 ML IV SCH (21:00)
[2024-03-03] VITALS (29 sets, daily range): BP systolic 111–180; BP diastolic 70–106
[2024-03-03 04:59] LABS: HEMATOCRIT 35.2 % (39.0-50.0); MEAN CELL VOLUME 97.5 fL CALC (80.0-100.0); MEAN CORPUSCULAR HGB 30.5 pG CALC (26.0-32.0); MEAN CORPUSCULAR HGB CONC 31.3 g/dL CAL (32.0-36.0); RED BLOOD COUNT 3.61 mill/uL (4.70-6.10); RED CELL DISTRI WIDTH 15.7 % (11.5-15.5)
[2024-03-03 05:09] LABS: ALBUMIN 3.1 g/dL (3.2-5.0); BILIRUBIN, TOTAL 1.1 mg/dL (0.2-1.3); CREATININE 2.3 mg/dL (0.7-1.3); MAGNESIUM 2.8 mg/dL (1.6-2.3); POTASSIUM 4.5 mmol/l (3.5-5.1)
[2024-03-03] MEDS ORDERED: AZTREONAM 2 GM in SODIUM CHLORIDE 0.9% 100 ML IV SCH (09:00)
[2024-03-03] MEDS ORDERED: methylPREDNISolone Sod Succ 40 MG/ML SDV IV SCH (09:00)
[2024-03-03] MEDS ORDERED: INSULIN LISPRO 100 UNITS/ML ML SC SCH ×2 (18:00→21:00)
[2024-03-03] MEDS ORDERED: DEXTROSE 250 ML IV PRN (18:00)
[2024-03-03] MEDS ORDERED: INSULIN DETEMIR 100 UNITS/ML SC SCH (21:00)
[2024-03-03] MEDS ORDERED: HEPARIN SODIUM IV PRN (22:20)
[2024-03-03] MEDS ORDERED: NS 0.45% IV PRN (22:20)
[2024-03-03] MEDS ORDERED: DRIP IV PRN (22:20)
[2024-03-03] MEDS ORDERED: Heparin SODIUM (Porcine) 5,000 UNITS/ML SDV IV SCH (22:30)
[2024-03-03] MEDS ORDERED: METOPROLOL TARTRATE 5 MG/5 ML VIAL IV PRN (22:35)
[2024-03-03 22:46] LABS: HEMATOCRIT 38.3 % (39.0-50.0); HEMOGLOBIN 11.6 g/dl (14.0-18.0); MEAN CORPUSCULAR HGB CONC 30.3 g/dL CAL (32.0-36.0); RED BLOOD COUNT 3.87 mill/uL (4.70-6.10); RED CELL DISTRI WIDTH 15.9 % (11.5-15.5)
[2024-03-03 23:17] LABS: ACT PARTIAL THROMBO TIME 30.8 SECONDS (20.0-32.5); INTERNATIONAL NORMALIZED RATIO 1.5 RATIO (0.7-1.3)
[2024-03-03 23:19] LABS: PROTHROMBIN TIME 13.7 SECONDS (9.0-12.5)
[2024-03-03 23:25] LABS: CREATININE 2.4 mg/dL (0.7-1.3); POTASSIUM 4.9 mmol/l (3.5-5.1)
[2024-03-04] VITALS (57 sets, daily range): BP systolic 93–140; BP diastolic 55–101
[2024-03-04 05:11] LABS: ALBUMIN 3.1 g/dL (3.2-5.0); CREATININE 2.2 mg/dL (0.7-1.3); MAGNESIUM 2.7 mg/dL (1.6-2.3)
[2024-03-04] MEDS ORDERED: METOPROLOL TARTRATE 25 MG/TAB PO SCH (09:00)
[2024-03-04] MEDS ORDERED: FUROSEMIDE 40 MG/4 ML SDV IV SCH (09:00)
[2024-03-04] MEDS ORDERED: APIXABAN BASE 2.5 MG/TAB TAB PO SCH (09:00)
[2024-03-04] MEDS ORDERED: METOPROLOL TARTRATE 25 MG/TAB PO ONE (12:10)
[2024-03-04] MEDS ORDERED: DILTIAZEM HCL 125 MG in SODIUM CHLORIDE 0.9% 100 ML IV PRN (13:45)
[2024-03-04] MEDS ORDERED: dilTIAZem HCL 50 MG/10 ML SDV IV PRN ×2 (13:45)
[2024-03-04] MEDS ORDERED: IPRATROPIUM BROMIDE 0.5 MG/2.5 ML SOL IN SCH ×2 (16:00→19:00)
[2024-03-04] MEDS ORDERED: LEVALBUTEROL HCL 1.25 MG/3 ML VIAL IN SCH ×2 (16:00→19:00)
[2024-03-04] MEDS ORDERED: [UNRECOGNIZED DRUG - REMARK] PO PRN (18:00)
[2024-03-04] MEDS ORDERED: dilTIAZem HCL 60 MG/TAB PO SCH (21:00)
[2024-03-05] VITALS (30 sets, daily range): BP systolic 96–161; BP diastolic 52–96
[2024-03-05 04:58] LABS: HEMATOCRIT 34.8 % (39.0-50.0); HEMOGLOBIN 10.9 g/dl (14.0-18.0); MEAN CELL VOLUME 97.8 fL CALC (80.0-100.0); MEAN CORPUSCULAR HGB 30.6 pG CALC (26.0-32.0); MEAN CORPUSCULAR HGB CONC 31.3 g/dL CAL (32.0-36.0); RED BLOOD COUNT 3.56 mill/uL (4.70-6.10); RED CELL DISTRI WIDTH 15.8 % (11.5-15.5)
[2024-03-05 05:07] LABS: POTASSIUM 4.6 mmol/l (3.5-5.1)
[2024-03-05] MEDS ORDERED: ALPRAZolam 0.5 MG/TAB PO PRN (19:25)
[2024-03-05] MEDS ORDERED: FUROSEMIDE 40 MG/4 ML SDV IV SCH (19:45)
[2024-03-05] MEDS ORDERED: LORazepam 2 MG/ML IV SCH (19:45)
[2024-03-05] MEDS ORDERED: LORazepam 2 MG/ML IV PRN (19:55)
[2024-03-05 20:56] LABS: HEMATOCRIT 34.5 % (39.0-50.0); HEMOGLOBIN 10.7 g/dl (14.0-18.0); MEAN CELL VOLUME 97.5 fL CALC (80.0-100.0); MEAN CORPUSCULAR HGB 30.2 pG CALC (26.0-32.0); RED BLOOD COUNT 3.54 mill/uL (4.70-6.10); RED CELL DISTRI WIDTH 15.7 % (11.5-15.5)
[2024-03-05 21:07] LABS: ALBUMIN 2.9 g/dL (3.2-5.0); BILIRUBIN, TOTAL 0.8 mg/dL (0.2-1.3); CREATININE 2.1 mg/dL (0.7-1.3); POTASSIUM 4.7 mmol/l (3.5-5.1); TOTAL PROTEIN 6.5 g/dL (6.3-8.2)
[2024-03-06] VITALS (24 sets, daily range): BP systolic 116–173; BP diastolic 64–91
[2024-03-06 05:13] LABS: HEMATOCRIT 36.3 % (39.0-50.0); HEMOGLOBIN 11.3 g/dl (14.0-18.0); MEAN CELL VOLUME 96.8 fL CALC (80.0-100.0); MEAN CORPUSCULAR HGB 30.1 pG CALC (26.0-32.0); MEAN CORPUSCULAR HGB CONC 31.1 g/dL CAL (32.0-36.0); RED BLOOD COUNT 3.75 mill/uL (4.70-6.10); RED CELL DISTRI WIDTH 15.7 % (11.5-15.5)
[2024-03-06 05:28] LABS: ALBUMIN 2.9 g/dL (3.2-5.0); BILIRUBIN, TOTAL 0.8 mg/dL (0.2-1.3); MAGNESIUM 2.5 mg/dL (1.6-2.3); POTASSIUM 4.3 mmol/l (3.5-5.1); TOTAL PROTEIN 6.4 g/dL (6.3-8.2)
[2024-03-06] MEDS ORDERED: ACETYLCYSTEINE 20% 200 MG/ML SDV IN SCH (09:30)
[2024-03-06] MEDS ORDERED: FUROSEMIDE 40 MG/4 ML SDV IV SCH (21:00)
[2024-03-07] VITALS (24 sets, daily range): BP systolic 110–154; BP diastolic 59–106
[2024-03-07 05:21] LABS: BASO% 0.1 % (0-3); HEMATOCRIT 36.2 % (39.0-50.0); HEMOGLOBIN 11.3 g/dl (14.0-18.0); IMMATURE GRANULOCYTES 0.6 % (0.0-5.0); LYMPH% 4.5 % (15-41); MEAN CELL VOLUME 96.5 fL CALC (80.0-100.0); MEAN CORPUSCULAR HGB 30.1 pG CALC (26.0-32.0); MEAN CORPUSCULAR HGB CONC 31.2 g/dL CAL (32.0-36.0); MONO% 8.9 % (2-13); NEUT# 8.65 thou/uL (1.82-7.42); NEUT% 85.9 % (42-76); RED BLOOD COUNT 3.75 mill/uL (4.70-6.10); RED CELL DISTRI WIDTH 15.9 % (11.5-15.5)
[2024-03-07 05:47] LABS: ALBUMIN 2.8 g/dL (3.2-5.0); BILIRUBIN, TOTAL 0.8 mg/dL (0.2-1.3); MAGNESIUM 2.5 mg/dL (1.6-2.3); POTASSIUM 4.5 mmol/l (3.5-5.1); TOTAL PROTEIN 6.3 g/dL (6.3-8.2)
[2024-03-07] MEDS ORDERED: CEFEPIME HYDROCHLORIDE 2 GM in SODIUM CHLORIDE 0.9% 100 ML IV SCH (11:00)
[2024-03-08] VITALS (25 sets, daily range): BP systolic 107–147; BP diastolic 56–75
[2024-03-08 05:41] LABS: BASO% 0.1 % (0-3); EOS% 0.1 % (0-8); HEMATOCRIT 39.1 % (39.0-50.0); HEMOGLOBIN 12.2 g/dl (14.0-18.0); IMMATURE GRANULOCYTES 0.5 % (0.0-5.0); LYMPH% 4.6 % (15-41); MEAN CELL VOLUME 96.1 fL CALC (80.0-100.0); MEAN CORPUSCULAR HGB CONC 31.2 g/dL CAL (32.0-36.0); MONO% 9.6 % (2-13); NEUT# 9.88 thou/uL (1.82-7.42); NEUT% 85.1 % (42-76); RED BLOOD COUNT 4.07 mill/uL (4.70-6.10); RED CELL DISTRI WIDTH 15.7 % (11.5-15.5)
[2024-03-08 06:01] LABS: BILIRUBIN, TOTAL 0.9 mg/dL (0.2-1.3); CREATININE 1.8 mg/dL (0.7-1.3); POTASSIUM 4.3 mmol/l (3.5-5.1); TOTAL PROTEIN 6.7 g/dL (6.3-8.2)
[2024-03-08] MEDS ORDERED: predniSONE 20 MG/TAB PO SCH (09:00)
[2024-03-09] VITALS (13 sets, daily range): BP systolic 81–113; BP diastolic 50–67
[2024-03-09 06:04] LABS: EOS% 0.1 % (0-8); HEMATOCRIT 38.5 % (39.0-50.0); HEMOGLOBIN 12.3 g/dl (14.0-18.0); IMMATURE GRANULOCYTES 0.3 % (0.0-5.0); LYMPH% 5.5 % (15-41); MEAN CELL VOLUME 95.8 fL CALC (80.0-100.0); MEAN CORPUSCULAR HGB 30.6 pG CALC (26.0-32.0); MEAN CORPUSCULAR HGB CONC 31.9 g/dL CAL (32.0-36.0); MONO% 7.9 % (2-13); NEUT# 12.3 thou/uL (1.82-7.42); NEUT% 86.2 % (42-76); RED BLOOD COUNT 4.02 mill/uL (4.70-6.10); RED CELL DISTRI WIDTH 15.7 % (11.5-15.5)
[2024-03-09 06:27] LABS: ALBUMIN 2.7 g/dL (3.2-5.0); BILIRUBIN, TOTAL 0.9 mg/dL (0.2-1.3); CREATININE 1.8 mg/dL (0.7-1.3); MAGNESIUM 2.2 mg/dL (1.6-2.3); POTASSIUM 4.5 mmol/l (3.5-5.1)
[2024-03-09] MEDS ORDERED: FUROSEMIDE 40 MG/4 ML SDV IV SCH (14:00)
[2024-03-10] VITALS (15 sets, daily range): BP systolic 92–189; BP diastolic 54–106
[2024-03-10 05:01] LABS: BASO% 0.1 % (0-3); EOS% 1.8 % (0-8); HEMOGLOBIN 13.6 g/dl (14.0-18.0); IMMATURE GRANULOCYTES 0.8 % (0.0-5.0); LYMPH% 7.6 % (15-41); MEAN CELL VOLUME 94.8 fL CALC (80.0-100.0); MEAN CORPUSCULAR HGB 29.3 pG CALC (26.0-32.0); MEAN CORPUSCULAR HGB CONC 30.9 g/dL CAL (32.0-36.0); MONO% 7.6 % (2-13); NEUT# 16.09 thou/uL (1.82-7.42); NEUT% 82.1 % (42-76); RED BLOOD COUNT 4.64 mill/uL (4.70-6.10); RED CELL DISTRI WIDTH 15.9 % (11.5-15.5)
[2024-03-10 05:45] LABS: BILIRUBIN, TOTAL 1.1 mg/dL (0.2-1.3); CREATININE 1.8 mg/dL (0.7-1.3); MAGNESIUM 2.1 mg/dL (1.6-2.3); POTASSIUM 4.7 mmol/l (3.5-5.1); TOTAL PROTEIN 6.7 g/dL (6.3-8.2)
[2024-03-10] MEDS ORDERED: hydrALAZINE HCL 20 MG/ML VIAL(1 ML) IV PRN (06:05)
[2024-03-10] MEDS ORDERED: DEXTROSE 250 ML IV ONE ×2 (06:15→07:00)
[2024-03-10] MEDS ORDERED: INSULIN DETEMIR 100 UNITS/ML SC SCH (21:00)
[2024-03-11 00:01] VITALS: BP 110/62
[2024-03-11 02:00] VITALS: BP 103/61
[2024-03-11 04:01] VITALS: BP 106/62
[2024-03-11 05:53] LABS: HEMOGLOBIN 11.7 g/dl (14.0-18.0); MEAN CELL VOLUME 94.4 fL CALC (80.0-100.0); MEAN CORPUSCULAR HGB CONC 31.8 g/dL CAL (32.0-36.0); RED BLOOD COUNT 3.9 mill/uL (4.70-6.10); RED CELL DISTRI WIDTH 15.8 % (11.5-15.5)
[2024-03-11 06:00] VITALS: BP 107/62
[2024-03-11 06:03] LABS: HEMATOCRIT 36.8 % (39.0-50.0)
[2024-03-11 06:09] LABS: ALBUMIN 2.6 g/dL (3.2-5.0); BILIRUBIN, TOTAL 0.9 mg/dL (0.2-1.3); CREATININE 1.8 mg/dL (0.7-1.3); MAGNESIUM 2.2 mg/dL (1.6-2.3); POTASSIUM 4.7 mmol/l (3.5-5.1); TOTAL PROTEIN 5.9 g/dL (6.3-8.2)
[2024-03-11 08:00] VITALS: BP 97/57
[2024-03-11] MEDS ORDERED: LASIX40 MG PO (08:21)
[2024-03-11] MEDS ORDERED: PREDNISONE10 MG PO (08:28)
[2024-03-11] MEDS ORDERED: ELIQUIS2.5 MG PO (08:28)
[2024-03-11] MEDS ORDERED: predniSONE 20 MG/TAB PO SCH (09:00)
[2024-03-11 10:01] VITALS: BP 122/61
== END 2024-03-11 11:42 | DRG 291 ==
LOC: ED 10:23 → ED-I 17:10 → ED 17:15 → MS2 17:16 → ICU 02-26 15:06
PROVIDERS: Emergency Medicine; Internal Medicine; Internal Medicine Nephrology; ADMIT Student in an Organized Health Care Education/Training Program; ATTEND Student in an Organized Health Care Education/Training Program
PROC: 0T9B70Z Drainage of Bladder with Drainage Device, Via Natural or Artificial Opening (ICD-10-PCS; principal; 2024-02-26)
PROC: 5A09357 Assistance with Respiratory Ventilation, Less than 24 Consecutive Hours, Continuous Positive Airway Pressure (ICD-10-PCS; 2024-02-27)
PROC: 0W993ZZ Drainage of Right Pleural Cavity, Percutaneous Approach (ICD-10-PCS; 2024-02-28)
PROC: 0W993ZZ Drainage of Right Pleural Cavity, Percutaneous Approach (ICD-10-PCS; 2024-03-08)
PROC: 0W993ZZ Drainage of Right Pleural Cavity, Percutaneous Approach (ICD-10-PCS; 2024-03-09)
DX: I13.0 Hypertensive heart and chronic kidney disease with heart failure and stage 1 through stage 4 chronic kidney disease, or unspecified chronic kidney disease (principal); I50.33 Acute on chronic diastolic (congestive) heart failure; J96.01 Acute respiratory failure with hypoxia; J96.02 Acute respiratory failure with hypercapnia; J69.0 Pneumonitis due to inhalation of food and vomit; E87.20 Acidosis, unspecified; N17.9 Acute kidney failure, unspecified; J91.8 Pleural effusion in other conditions classified elsewhere; I24.89 Other forms of acute ischemic heart disease; J44.1 Chronic obstructive pulmonary disease with (acute) exacerbation; E11.52 Type 2 diabetes mellitus with diabetic peripheral angiopathy with gangrene; I96 Gangrene, not elsewhere classified; E87.5 Hyperkalemia; E86.9 Volume depletion, unspecified; I95.9 Hypotension, unspecified; E11.22 Type 2 diabetes mellitus with diabetic chronic kidney disease; N18.31 Chronic kidney disease, stage 3a; K76.0 Fatty (change of) liver, not elsewhere classified; D64.9 Anemia, unspecified; I45.10 Unspecified right bundle-branch block; E86.1 Hypovolemia; L89.629 Pressure ulcer of left heel, unspecified stage; L89.619 Pressure ulcer of right heel, unspecified stage; D69.6 Thrombocytopenia, unspecified; N40.0 Benign prostatic hyperplasia without lower urinary tract symptoms; E83.39 Other disorders of phosphorus metabolism; D69.2 Other nonthrombocytopenic purpura; Z89.411 Acquired absence of right great toe; Z86.718 Personal history of other venous thrombosis and embolism; Z99.81 Dependence on supplemental oxygen; Z79.4 Long term (current) use of insulin; Z79.84 Long term (current) use of oral hypoglycemic drugs; Z79.85 Long-term (current) use of injectable non-insulin antidiabetic drugs; Z20.822 Contact with and (suspected) exposure to COVID-19; I48.91 Unspecified atrial fibrillation; I36.1 Nonrheumatic tricuspid (valve) insufficiency; E11.649 Type 2 diabetes mellitus with hypoglycemia without coma
CPT/HCPCS: J0457; J0692; J2060

== ENCOUNTER → 2024-03-27 | Emergency (ER) | payer MEDICARE, OTHER ==
[2024-03-27] VITALS (109 sets, daily range): BP systolic 118–167; BP diastolic 64–137
[~2024-03-27] VITALS: Ht 177.8 cm; Wt 81.8 kg
[~2024-03-27] MED LIST changes: +ELIQUIS2.5 MG PO; +GABAPENTIN300 M2 PO; +LASIX40 MG PO; +Levofloxacin 750 mg Premix 150 ML IV ONE; +NOREPINEPHRINE BITARTRATE 4 MG in DEXTROSE 5% 250 ML IV ONE; +NOREPINEPHRINE BITARTRATE 4 MG/VIAL SDV ONE; +PHENYLEPHRINE HCL 10 MG/ML VIAL IV ONE; +PHENYLEPHRINE HCL 10 MG/ML VIAL ONE; +PROPOFOL 100 ML IV ONE; +ROCURONIUM BROMIDE 10 MG/ML 5ML VIAL IV ONE; +SODIUM CHLORIDE 0.9% 100 ML BAG IV ONE; +SODIUM CHLORIDE 0.9% 100 ML IV ONE; +SODIUM CHLORIDE 0.9% 500 ML IV ONE; +SODIUM CHLORIDE 250 ML IV ONE; +amioDARONE HCl 450 MG in SODIUM CHLORIDE 250 ML IV ONE
--- NOTE | 2024-03-27 14:40 | NUR ---
CHANGED ET TUBE FOR POSSIBLE CUFF LEAK BY . TUBE CHANGE PERFORMED WITHOUT COMPLICATION.
[2024-03-27 14:55] LABS: URINE BILIRUBIN - DIPSTICK Negative (NEGATIVE); URINE BLOOD DIPSTICK Moderate (NEGATIVE); URINE GLUCOSE - DIPSTICK Negative (NEGATIVE); URINE KETONE Negative (NEGATIVE); URINE NITRITE - DIPSTICK Negative (Negative); URINE PROTEIN - DIPSTICK Negative (NEG-TRACE); URINE UROBILINOGEN - DIPSTICK 0.2 E.U./dL (0.2)
[2024-03-27 15:06] LABS: URINE COLOR Yellow; URINE LEUK ESTERASE Small (NEGATIVE)
[2024-03-27 15:11] LABS: URINE YEAST MANY hpf
[2024-03-27 15:31] LABS: BASO% 0.2 % (0-3); EOS% 2.1 % (0-8); HEMATOCRIT 36.2 % (39.0-50.0); IMMATURE GRANULOCYTES 1.1 % (0.0-5.0); LYMPH% 11.4 % (15-41); MEAN CORPUSCULAR HGB 29.6 pG CALC (26.0-32.0); MEAN CORPUSCULAR HGB CONC 30.1 g/dL CAL (32.0-36.0); NEUT# 9.56 thou/uL (1.82-7.42); NEUT% 78.2 % (42-76); RED BLOOD COUNT 3.68 mill/uL (4.70-6.10); RED CELL DISTRI WIDTH 15.6 % (11.5-15.5)
[2024-03-27 15:34] LABS: HEMOGLOBIN 10.9 g/dl (14.0-18.0); MEAN CELL VOLUME 98.4 fL CALC (80.0-100.0)
[2024-03-27 15:41] LABS: ALBUMIN 3.3 g/dL (3.2-5.0); BILIRUBIN, TOTAL 1.1 mg/dL (0.2-1.3); CREATININE 1.9 mg/dL (0.7-1.3); MAGNESIUM 2.2 mg/dL (1.6-2.3); POTASSIUM 4.6 mmol/l (3.5-5.1); TOTAL PROTEIN 7.4 g/dL (6.3-8.2)
[2024-03-27 15:45] LABS: INTERNATIONAL NORMALIZED RATIO 1.3 RATIO (0.7-1.3)
[2024-03-27 15:46] LABS: PROTHROMBIN TIME 11.9 SECONDS (9.0-12.5)
== END | disposition short-term general hospital (02) ==
LOC: ED 13:37
PROVIDERS: Family Medicine
PROC: 06HY33Z Insertion of Infusion Device into Lower Vein, Percutaneous Approach (ICD-10-PCS; principal; 2024-03-27)
PROC: 0BH17EZ Insertion of Endotracheal Airway into Trachea, Via Natural or Artificial Opening (ICD-10-PCS; 2024-03-27)
PROC: 5A1935Z Respiratory Ventilation, Less than 24 Consecutive Hours (ICD-10-PCS; 2024-03-27)
PROC: 3E043XZ Introduction of Vasopressor into Central Vein, Percutaneous Approach (ICD-10-PCS; 2024-03-27)
DX: I46.9 Cardiac arrest, cause unspecified (principal); I49.01 Ventricular fibrillation; R00.1 Bradycardia, unspecified; I95.9 Hypotension, unspecified; N39.0 Urinary tract infection, site not specified; I12.9 Hypertensive chronic kidney disease with stage 1 through stage 4 chronic kidney disease, or unspecified chronic kidney disease; E11.22 Type 2 diabetes mellitus with diabetic chronic kidney disease; N18.9 Chronic kidney disease, unspecified; Z86.718 Personal history of other venous thrombosis and embolism; Z79.4 Long term (current) use of insulin; Z20.822 Contact with and (suspected) exposure to COVID-19
CPT/HCPCS: J0282